=== PATIENT | female | born 1970 | race Caucasian/White ===

== ENCOUNTER → 2016-09-11 | Outpatient (CLI) | payer MEDICAID ==
[~2016-09-11] MED LIST: ATEN50TA2 PO; EFFE150C PO; HYDR12.55 PO; MOTR200T44 PO; VICO5TAB16 PO
--- NOTE | 2016-09-11 12:40 | REP ---
CHEST X-RAY: TWO VIEWS. HISTORY: Bronchitis. COMPARISON: Chest x-ray June 08, 2014. FINDINGS: The lungs are well inflated and clear. Pleural angles are sharp. Heart size is normal. There are degenerative changes in the thoracic spine. Clips are noted in the left upper quadrant of the abdomen. IMPRESSION: No active disease. No infiltrate seen.
== END ==
LOC: M CLY 09:46
PROVIDERS: ATTEND Family Medicine
DX: J40 Bronchitis, not specified as acute or chronic (principal)

== ENCOUNTER → 2016-09-21 | Outpatient (REF) | payer MEDICAID ==
[2016-09-21 19:12] LABS: ALBUMIN 3.5 GM/DL (3.2-5.2); ALKALINE PHOSPHATASE 71 U/L (45-117); ALT/SGPT 18 U/L (12-78); ANION GAP 8 MEQ/L (8-16); AST/SGOT 17 U/L (15-37); BILIRUBIN,TOTAL 0.3 MG/DL (0.2-1.0); BLOOD UREA NITROGEN 11 MG/DL (7-18); CALCIUM LEVEL 8.9 MG/DL (8.5-10.1); CARBON DIOXIDE LEVEL 29 MEQ/L (21-32); CHLORIDE LEVEL 103 MEQ/L (98-107); CHOLESTEROL LEVEL 221 MG/DL (<200); CREATININE FOR GFR 0.97 MG/DL (0.55-1.02); GLOMERULAR FILTRATION RATE > 60.0 (>58); GLUCOSE, FASTING 104 MG/DL (70-105); POTASSIUM SERUM 4.9 MEQ/L (3.5-5.1); SODIUM LEVEL 140 MEQ/L (136-145); TRIGLYCERIDES LEVEL 518 MG/DL (<150)
[2016-09-21 20:51] LABS: BASO # 0.1 K/mm3 (0.0-0.2); BASO % 0.6 % (0.0-1.0); EOS # 0.3 K/mm3 (0.0-0.50); EOS % 2.8 % (0.0-3.0); LARGE UNSTAINED CELL # 0.1 K/mm3 (0.0-0.4); LARGE UNSTAINED CELL % 1.2 % (0.0-4.0); LYMPH # 3.1 K/mm3 (1.5-4.5); LYMPH % 27.1 % (24.0-44.0); MEAN CORPUSCULAR HEMOGLOBIN 32.4 pg (27.0-33.0); MEAN CORPUSCULAR HGB CONC 33.8 g/dl (32.0-36.5); MEAN CORPUSCULAR VOLUME 95.7 fl (80.0-96.0); MONO # 0.8 K/mm3 (0.0-0.8); MONO % 6.8 % (0.0-5.0); NEUTROPHILS # 7.1 K/mm3 (1.8-7.7); NEUTROPHILS % 61.5 % (36.0-66.0); PLATELET COUNT, AUTOMATED 396 k/mm3 (150-450); RED CELL DISTRIBUTION WIDTH 12.6 % (11.5-14.5); WHITE BLOOD COUNT 11.6 K/mm3 (4.0-10.0)
== END ==
LOC: M SFHCCLAY 10:43
PROVIDERS: ATTEND Family Medicine
DX: I10 Essential (primary) hypertension (principal); E11.9 Type 2 diabetes mellitus without complications

== ENCOUNTER → 2016-11-13 | Outpatient (CLI) | payer OTHER, MEDICAID ==
--- NOTE | 2016-11-13 14:04 | REP ---
REASON: Bronchitis and dyspnea. COMPARISON: 09/11/2016 A new patchy opacity has developed in the left lower lobe. The lung mckeon are otherwise clear and unchanged. The heart is not enlarged and the pleural angles are sharp. The osseous structures are stable and intact. IMPRESSION: Acute left lower lobe pneumonia. Signed by Jim Purvis DO 11/13/2016 05:01 P
== END ==
LOC: M LRY 13:26
PROVIDERS: ATTEND Nurse Practitioner Family
DX: J18.1 Lobar pneumonia, unspecified organism (principal)

== ENCOUNTER → 2016-11-24 | Outpatient (CLI) | payer OTHER ==
--- NOTE | 2016-11-24 11:57 | REP ---
Clinical: Follow up pneumonia. Technique: PA and lateral. Comparison: 11/13/2016. Findings: Subtle left lower lobe infiltrate is again suggested. Remainder of lung mckeon are clear. No effusion or pneumothorax. Mediastinum and cardiac silhouette normal. Skeletal structures intact. Impression: Subtle left lower lobe infiltrate/atelectasis suggested.
== END ==
LOC: M CLY 11:15
PROVIDERS: ATTEND Family Medicine
DX: J15.1 Pneumonia due to Pseudomonas (principal)

== ENCOUNTER → 2017-02-03 | Outpatient (CLI) | payer OTHER ==
[~2017-02-03] MED LIST changes: +ALLE180T33 PO; +AMLO5TAB2 PO; +HYDR-3363 PO; +MOBI4TAB PO; +ZYRT10CA PO
--- NOTE | 2017-02-04 07:20 | REP ---
Clinical: Varicose veins with lower extremity pain. Technique: Bowen scale and color Doppler evaluation using linear high frequency transducer with reflux evaluation. Findings: Ultrasound examination of the right lower extremity deep venous structures from the common femoral vein to the popliteal vein demonstrates normal compressibility flow and wave patterns in response to respiration and augmentation. There is no evidence for deep venous thrombosis. Reflux involving the common femoral vein and proximal superficial femoral vein noted. Evaluation for reflux demonstrates significant reflux through the greater saphenous vein with collateral vessels in the proximal to mid saphenous distribution supplying superficial varicosities to the anterior thigh. Reflux at the saphenofemoral junction with a diameter of 5.2 mm and duration of 4.6 seconds; mid thigh with a diameter of 2.9 mm and duration of 3.7 seconds; level of the knee with the diameter of 2.5 mm and duration of 3.3 seconds. No evidence for reflux through the lesser saphenous vein. Impression: No evidence for deep venous thrombosis. Reflux involving the greater saphenous vein and associated collateral vessels to superficial varicosities as described above. Signed by Obie Wiggins MD 02/04/2017 07:12 A
== END ==
LOC: M RAD 09:35
PROVIDERS: ATTEND Surgery Vascular Surgery
DX: I83.811 Varicose veins of right lower extremity with pain (principal)

== ENCOUNTER → 2017-02-19 | Outpatient (CLI) | payer OTHER ==
[2017-02-19 14:21] LABS: MEAN CORPUSCULAR HEMOGLOBIN 31.9 pg (27.0-33.0); MEAN CORPUSCULAR VOLUME 96.9 fl (80.0-96.0); RED CELL DISTRIBUTION WIDTH 14.6 % (11.5-14.5); WHITE BLOOD COUNT 9.2 K/mm3 (4.0-10.0)
[2017-02-19 14:29] LABS: ALBUMIN 3.5 GM/DL (3.2-5.2); ALKALINE PHOSPHATASE 72 U/L (45-117); ALT/SGPT 25 U/L (12-78); ANION GAP 10 MEQ/L (8-16); AST/SGOT 16 U/L (15-37); BILIRUBIN,TOTAL 0.3 MG/DL (0.2-1.0); BLOOD UREA NITROGEN 20 MG/DL (7-18); CALCIUM LEVEL 9.2 MG/DL (8.5-10.1); CARBON DIOXIDE LEVEL 25 MEQ/L (21-32); CHLORIDE LEVEL 106 MEQ/L (98-107); CREATININE FOR GFR 0.99 MG/DL (0.55-1.02); GLOMERULAR FILTRATION RATE > 60.0 (>58); GLUCOSE, FASTING 123 MG/DL (70-105); POTASSIUM SERUM 4.4 MEQ/L (3.5-5.1); SODIUM LEVEL 141 MEQ/L (136-145)
[2017-02-27 00:06] LABS: IGE RECEPTOR ABY 1 22.5 (<10)
== END ==
LOC: M SMT 09:17
PROVIDERS: ATTEND Allergy & Immunology Allergy
DX: L50.1 Idiopathic urticaria (principal)

== ENCOUNTER → 2017-03-12 | Outpatient (REF) | payer OTHER ==
[2017-03-12 14:30] LABS: URIC ACID 6.5 MG/DL (2.6-6.0)
[2017-03-12 14:52] LABS: MEAN CORPUSCULAR HEMOGLOBIN 33.4 pg (27.0-33.0); MEAN CORPUSCULAR HGB CONC 35.4 g/dl (32.0-36.5); MEAN CORPUSCULAR VOLUME 94.6 fl (80.0-96.0); RED CELL DISTRIBUTION WIDTH 13.9 % (11.5-14.5); WHITE BLOOD COUNT 9.6 K/mm3 (4.0-10.0)
[2017-03-12 15:11] LABS: BANDS 3 % (< 11); EOSINOPHILS 3 % (0-5)
[2017-03-12 15:12] LABS: ANISOCYTOSIS 1+
[2017-03-12 16:49] LABS: ERYTHROCYTE SEDIMENTATION RATE 26 mm/hr (0-20)
[2017-03-14 00:06] LABS: Lyme Disease IgG/IgM Antibodie <0.91 ISR (0.00-0.90); Lyme Disease IgM Ab Quantitati <0.80 index (0.00-0.79)
== END ==
LOC: M LABDRAW1 10:52
PROVIDERS: ATTEND Physician Assistant Surgical
DX: M79.672 Pain in left foot (principal)

== ENCOUNTER 2017-03-18 05:59 | Day surgery (SDC) | payer OTHER ==
[~2017-03-18] VITALS: Ht 172.7 cm; Wt 79.4 kg
[~2017-03-18 05:59] MED LIST changes: -HYDR-3363 PO; -MOBI4TAB PO
[2017-03-18] MEDS ORDERED: LR 1,000 ML IV ONE (06:15)
[2017-03-18] MEDS ORDERED: MOBI4TAB PO (06:38)
[2017-03-18] MEDS ORDERED: HYDR-3363 PO (06:39)
[2017-03-18] MEDS ORDERED: LIDOCAINE W/EPINEPHRINE 1% 20ML VIAL As Ordered ONE ×2 (07:23→07:39)
[2017-03-18] MEDS ORDERED: LIDOCAINE 1% SDV INJ 30 ML VIAL As Ordered ONE (07:23)
[2017-03-18] MEDS ORDERED: fentaNYL 100 MCG/2 ML INJECTION (J3010) As Ordered ONE ×2 (07:53→08:10)
[2017-03-18] MEDS ORDERED: PROPOFOL 500 MG/50 ML VIAL As Ordered ONE (07:53)
[2017-03-18] MEDS ORDERED: MIDAZOLAM INJ 2 MG/2 ML VIAL (J2250) As Ordered ONE (07:53)
[2017-03-18] MEDS ORDERED: dexameTHASONE 4 MG/ML 1ML VIAL (J1100) As Ordered ONE (07:53)
[2017-03-18] MEDS ORDERED: ONDANSETRON 4MG/2ML VIAL (J2405) As Ordered ONE (07:53)
[2017-03-18] MEDS ORDERED: LIDOCAINE 2% INJ 100 MG/5 ML SDV (FOR ANES.) As Ordered ONE (07:55)
[2017-03-18] MEDS ORDERED: KETOROLAC 60 MG/2 ML VIAL (J1885) As Ordered ONE (08:00)
[2017-03-18] MEDS ORDERED: PROPOFOL 200 MG/20 ML VIAL As Ordered ONE (08:15)
[2017-03-18] MEDS ORDERED: FLUMAZENIL 0.5 MG/5 ML VIAL As Ordered ONE (08:18)
[2017-03-18] MEDS: PERCOCET 5MG/325MG TAB PO PRN ×3 (08:40→09:19)
[2017-03-18] MEDS ORDERED: PERCOCET 5MG/325MG TAB As Ordered ONE (08:52)
[2017-03-18] MEDS ORDERED: fentaNYL 100 MCG/2 ML INJECTION (J3010) IV PRN (09:00)
[2017-03-18] MEDS ORDERED: LR 1,000 ML IV SCH (09:00)
[2017-03-18] MEDS ORDERED: ONDANSETRON 4MG/2ML VIAL (J2405) IV PRN (09:00)
[2017-03-18 10:02] VITALS: BP 137/83
--- NOTE | 2017-03-18 21:15 | ECGEPIP ---
Stationary ECG Study [facility] Test Date: 2017-03-18 Pat Name: ORIANA STORY Department: Room: - Gender: F Garage Manager: : [id number] Requested By: Fredi Castillo Order Number: [id number] Reading MD: Adin Myers Measurements Intervals [place] Rate: 64 P: 57 MT: 185 QRS: 59 QRSD: 92 T: 43 QT: 431 QTc: 447 Interpretive Statements Normal sinus rhythm Normal EKG No significant change when compared to prior tracing of 06/06/2014 Electronically Signed On 03-18-2017 21:14:57 EDT by Adin Myers
--- NOTE | 2017-03-30 10:39 | RO ---
DATE OF PROCEDURE: 03/18/2017 PREPROCEDURE DIAGNOSES: Right lower extremity varicose veins, right lower extremity greater saphenous vein valvular insufficiency, right lower extremity pain. POSTPROCEDURE DIAGNOSES: Right lower extremity varicose veins, right lower extremity greater saphenous vein valvular insufficiency, right lower extremity pain. PROCEDURE: Right greater saphenous vein radiofrequency ablation, ultrasound guided right greater saphenous vein cannulation. SURGEON: Dr. Kip Rodriguez BROADCAST OPERATIONS ENGINEER: None. ANESTHESIA: Local MAC. ESTIMATED BLOOD LOSS: 20 IV FLUIDS: 700 mL HEPARIN: None. SPECIMENS: None. IMPLANTS: None. COMPLICATIONS: None. INDICATION: The patient is a 46-year-old female with right lower extremity pain and swelling who has throbbing at night and who has tried conservative therapy with compressive stockings, who was evaluated and found to have valvular insufficiency in the right greater saphenous vein. The patient has had little success with conservative therapy and is unable to wear her compression stockings regularly and wishes to proceed with a greater saphenous vein ablation for half-way permanent relief of symptoms. Risks, benefits and alternative treatment options were discussed with the patient. Benefits, included, but were not limited to resolution of her symptoms secondary to valvular venous insufficiency. Alternative treatment options included, but were not limited to no intervention. Risks included, but were not limited to infection, bleeding, renal failure requiring hemodialysis, possible need for open surgical intervention, scarring and burning of the skin, cerebrovascular accident, myocardial infarction, pulmonary embolism, deep vein thrombosis (DVT), loss of limb, loss of life and poor outcome. The patient's questions were answered. The patient voices understanding of these risks, benefits and alternative treatment options. The patient accepts these risks and agrees to proceed with a right greater saphenous vein radiofrequency ablation. DESCRIPTION OF PROCEDURE: The patient was taken to the operating room and placed supine on the operating room table. The right lower extremity was prepped and draped in a standard surgical fashion. A time-out was then conducted by myself and all the team members within the room confirming the correct procedure, patient, and laterality. The ultrasound was then used to identify the greater saphenous vein in the below knee region. Ultrasound was used to guide cannulation of the right greater saphenous vein in the below knee region with real time concurrent visualization of entry of the needle into the right greater saphenous vein with a hard copy image preserved. The micropuncture wire was advanced through the micropuncture needle, which was upsized to a micropuncture sheath. A J wire was advanced through the micropuncture sheath, which was upsized to a #7 Lao sheath. The radiofrequency ablation catheter was advanced through the sheath and positioned 2 cm distal to the saphenofemoral junction. solution was then injected circumferentially around the greater saphenous vein from the saphenofemoral junction to the entry site in the below knee region. The right greater saphenous vein was then ablated using the radiofrequency ablation catheter from 2 cm distal to the saphenofemoral junction to the entry site in the right below knee region. Catheter and sheath were then removed. Dressings were applied. The patient tolerated the procedure well. All instruments, sponge and needle counts were correct at the end of the case. There were no complications. Dr. Rodriguez was present for and directed the entire case. The patient was transferred to the recovery room and subsequently discharged in stable condition once dressings were applied with an Blane wrap from the base of the toes to the above knee thigh region.
== END 2017-03-18 10:10 | disposition home or self-care (01) ==
LOC: M SDC 05:59
PROVIDERS: ATTEND Surgery Vascular Surgery
DX: I83.811 Varicose veins of right lower extremity with pain (principal); I87.2 Venous insufficiency (chronic) (peripheral); I10 Essential (primary) hypertension; F17.210 Nicotine dependence, cigarettes, uncomplicated; M10.9 Gout, unspecified; R06.83 Snoring; Z79.899 Other long term (current) drug therapy; Z79.52 Long term (current) use of systemic steroids; Z91.030 Bee allergy status

== ENCOUNTER → 2017-03-26 | Outpatient (REF) | payer OTHER ==
[~2017-03-26] MED LIST changes: +HYDR-3363 PO; +MOBI4TAB PO
[2017-03-26 12:52] LABS: ALBUMIN 3.6 GM/DL (3.2-5.2); ALBUMIN/GLOBULIN RATIO 1.03 (1.00-1.93); ALKALINE PHOSPHATASE 86 U/L (45-117); ALT/SGPT 23 U/L (12-78); ANION GAP 13 MEQ/L (8-16); AST/SGOT 13 U/L (15-37); BILIRUBIN,TOTAL 0.5 MG/DL (0.2-1.0); BLOOD UREA NITROGEN 18 MG/DL (7-18); CALCIUM LEVEL 9.4 MG/DL (8.5-10.1); CARBON DIOXIDE LEVEL 22 MEQ/L (21-32); CHLORIDE LEVEL 107 MEQ/L (98-107); CHOLESTEROL LEVEL 186 MG/DL (<200); CREATININE FOR GFR 0.93 MG/DL (0.55-1.02); GLOMERULAR FILTRATION RATE > 60.0 (>58); GLUCOSE, FASTING 114 MG/DL (70-105); POTASSIUM SERUM 4.4 MEQ/L (3.5-5.1); SODIUM LEVEL 142 MEQ/L (136-145); THYROXINE (T4) 9.3 UG/DL (4.5-12.0); TOTAL PROTEIN 7.1 GM/DL (6.4-8.2); TRIGLYCERIDES LEVEL 213 MG/DL (<150)
== END ==
LOC: M SFHCCLAY 09:29
PROVIDERS: ATTEND Family Medicine
DX: E11.9 Type 2 diabetes mellitus without complications (principal); R94.6 Abnormal results of thyroid function studies

== ENCOUNTER → 2017-04-22 | Outpatient (CLI) | payer OTHER ==
--- NOTE | 2017-04-22 17:03 | REP ---
Right lower extremity duplex venous ultrasound: History: Status post endovascular laser therapy greater saphenous vein. Findings: The deep veins are anechoic and fully compressible from the groin to the popliteal fossa in the right lower extremity on two-dimensional scanning. Color flow imaging is homogeneous. Spectral Doppler interrogation demonstrates intact respiratory variation in flow normal manual augmentation of flow. There is no evidence of DVT. There is occlusive thrombosis as expected in the treated greater saphenous vein. Impression: No evidence of deep vein thrombosis. Occlusive thrombosis seen in the treated greater saphenous vein. Signed by Roosevelt Ewing MD 04/22/2017 05:14 P
== END ==
LOC: M RAD 13:13
PROVIDERS: ATTEND Surgery Vascular Surgery
DX: I83.811 Varicose veins of right lower extremity with pain (principal)

== ENCOUNTER → 2018-10-19 | Outpatient (REF) | payer OTHER ==
[~2018-10-19] MED LIST changes: -AMLO5TAB2 PO; +AMLO5TAB6 PO; -EFFE150C PO; +EFFE150C2 PO; -VICO5TAB16 PO; +VICO5TAB17 PO
[2018-10-20 12:30] LABS: THYROID STIMULATING HORMONE 3.05 uIU/ML (0.358-3.740); TOTAL T3 97.8 NG/DL (60.0-181.0)
[2018-10-21 07:45] LABS: THYROID PEROXIDASE ANTIBODY 101.8 U/ML (<60.0)
== END ==
LOC: M LABDRAWC 11:38
PROVIDERS: ATTEND Allergy & Immunology Allergy
DX: L50.8 Other urticaria (principal)

== ENCOUNTER → 2019-04-14 | Outpatient (REF) | payer OTHER | LOC: M SFHCCLAY 09:42 | PROVIDERS: ATTEND Family Medicine | DX: E11.9 Type 2 diabetes mellitus without complications (principal); R79.89 Other specified abnormal findings of blood chemistry; Z53.9 Procedure and treatment not carried out, unspecified reason ==

== ENCOUNTER → 2020-08-11 | Outpatient (CLI) | payer OTHER ==
[~2020-08-11] MED LIST changes: +AMLO1TAB24 PO; -AMLO5TAB6 PO
== END ==
LOC: M LABSMTC 09:37
PROVIDERS: ATTEND Anesthesiology
DX: Z01.812 Encounter for preprocedural laboratory examination (principal); Z20.822 Contact with and (suspected) exposure to COVID-19

== ENCOUNTER 2020-08-16 12:07 | Day surgery (SDC) | payer OTHER ==
[~2020-08-16] VITALS: Ht 172.7 cm; Wt 83.4 kg
--- OUTSIDE RECORDS SUMMARY | 2020-08-16 12:12 | CCD ---
Author Author [facility] Organization [facility] Address Unknown Phone Unavailable Care Team Providers Care Public Housing Interviewer Name Role Phone ANGELA, Bobbi ESPINO Unavailable Unavailable LETTIERE, Bobbi VALLE PA Unavailable Unavailable LETTIERE, Bobbi VALLE PA Unavailable Unavailable LETTIERE, Bobbi VALLE PA Unavailable Unavailable LETTIERE, A TORI PA Unavailable Unavailable LETTIERE, Bobbi VALLE PA Unavailable Unavailable LETTIERE, Bobbi VALLE PA Unavailable Unavailable LETTIERE, Bobbi VALLE PA Unavailable Unavailable LETTIERE, Bobbi VALLE PA Unavailable Unavailable LETTIERE, A TORI PA Unavailable Unavailable LETTIERE, A TORI PA Unavailable Unavailable LETTIERE, A TORI PA Unavailable Unavailable LETTIERE, A TORI PA Unavailable Unavailable LETTIERE, A TORI PA Unavailable Unavailable LETTIERE, A TORI PA Unavailable Unavailable LETTIERE, A TORI PA Unavailable Unavailable LETTIERE, A TORI PA Unavailable Unavailable LETTIERE, A TORI PA Unavailable Unavailable LETTIERE, A TORI PA Unavailable Unavailable LETTIERE, A TORI PA Unavailable Unavailable LETTIERE, A TORI PA Unavailable Unavailable LETTIERE, A TORI PA Unavailable Unavailable LETTIERE, A TORI PA Unavailable Unavailable LETTIERE, A TORI PA Unavailable Unavailable LETTIERE, A TORI PA Unavailable Unavailable LETTIERE, A TORI PA Unavailable Unavailable LETTIERE, A TORI PA Unavailable Unavailable LETTIERE, A TORI PA Unavailable Unavailable LETTIERE, A TORI PA Unavailable Unavailable Re-disclosure Warning The records that you are about to access may contain information from federally-assisted alcohol or drug abuse programs. If such information is present, then the following federally mandated warning applies: This information has been disclosed to you from records protected by federal confidentiality rules (42 CFR part 2). The federal rules prohibit you from making any further disclosure of this information unless further disclosure is expressly permitted by the written consent of the person to whom it pertains or as otherwise permitted by 42 CFR part 2. A general authorization for the release of medical or other information is NOT sufficient for this purpose. The Federal rules restrict any use of the information to criminally investigate or prosecute any alcohol or drug abuse patient.The records that you are about to access may contain highly sensitive health information, the redisclosure of which is protected by Article 27-F of the [facility] Public Health law. If you continue you may have access to information: Regarding HIV / AIDS; Provided by facilities licensed or operated by the [facility] Office of Mental Health; or Provided by the [facility] Office for People With Developmental Disabilities. If such information is present, then the following [facility] mandated warning applies: This information has been disclosed to you from confidential records which are protected by state law. State law prohibits you from making any further disclosure of this information without the specific written consent of the person to whom it pertains, or as otherwise permitted by law. Any unauthorized further disclosure in violation of state law may result in a fine or mcfp sentence or both. A general authorization for the release of medical or other information is NOT sufficient authorization for further disc losure. 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) Unknown [address] [facility] [address] 12/25/2019 12:00:00 AM EDT eCW1 (Count includes the [facility]) Unknown [address] [facility] [address] 12/18/2019 12:00:00 AM EDT eCW1 (Count includes the [facility]) [facility] [address] [facility] [place] [address] 11/09/2019 12:00:00 AM EDT eCW1 (Count includes the [facility]) [facility] [address] [facility] [address] 08/09/2019 12:00:00 AM EST eCW1 (Count includes the [facility]) [facility] [address] [facility] [address] 07/04/2019 12:00:00 AM EST eCW1 (Count includes the [facility]) Medications Medication Brand Name Start Date Product Form Dose Route Admi nistrative Instructions Pharmacy Instructions Status Indications Reaction Description Data Source(s) 5 mg 07/08/2020 12:00:00 AM EST tablet 30 TAKE ONE TABLET BY MOUTH EVERY DAY TAKE ONE TABLET BY MOUTH EVERY DAY SOLD: 07/16/2020 [facility] Atenolol 50 MG Oral Tablet ATENOLOL 07/08/2020 12:00:00 AM EST tablet 30 TAKE ONE TABLET BY MOUTH EVERY DAY TAKE ONE TABLET BY MOUTH EVERY DAY SOLD: 07/16/2020 [facility] montelukast 10 MG Oral Tablet MONTELUKAST SODIUM 07/07/2020 12:0 0:00 AM EST tablet 30 TAKE ONE TABLET BY MOUTH EVERY E VENING TAKE ONE TABLET BY MOUTH EVERY EVENING SOLD: 07/16/2020 [facility] montelukast 10 MG Oral Tablet MONTELUKAST SODIUM 05/16/2020 12:0 0:00 AM EST tablet 30 TAKE ONE TABLET BY MOUTH EVERY E VENING TAKE ONE TABLET BY MOUTH EVERY EVENING SOLD: 06/11/2020 [facility] 25 mg 04/21/2020 12:00:00 AM EDT tablet 120 TAKE ONE TABLET BY MOUTH EVERY 6 HOURS NEEDED TAKE ONE TABLET BY MOUTH EVERY 6 HOURS NEEDED SOLD: 06/11/2020 [facility] 25 mg 04/21/2020 12:00:00 AM EDT tablet 120 TAKE ONE TABLET BY MOUTH EVERY 6 HOURS NEEDED TAKE ONE TABLET BY MOUTH EVERY 6 HOURS NEEDED SOLD: 07/16/2020 [facility] 25 mg 04/21/2020 12:00:00 AM EDT tablet 120 TAKE ONE TABLET BY MOUTH EVERY 6 HOURS NEEDED TAKE ONE TABLET BY MOUTH EVERY 6 HOURS NEEDED SOLD: 04/21/2020 [facility] montelukast 10 MG Oral Tablet MONTELUKAST SODIUM 04/15/2020 12:0 0:00 AM EDT tablet 30 TAKE ONE TABLET BY MOUTH EVERY D AY IN THE EVENING TAKE ONE TABLET BY MOUTH EVERY DAY IN THE EVENING SOLD: 04/21/2020 [facility] montelukast 10 MG Oral Tablet MONTELUKAST SODIUM 03/11/2020 12:0 0:00 AM EDT tablet 30 TAKE ONE TABLET BY MOUTH EVERY D AY IN THE EVENING TAKE ONE TABLET BY MOUTH EVERY DAY IN THE EVENING SOLD: 03/20/2020 [facility] venlafaxine 37.5 MG Oral Tablet VENLAFAXINE HCL 02/12/2020 12:00 :00 AM EDT tablet 30 TAKE ONE TABLET BY MOUTH EVERY D AY WITH FOOD TAKE ONE TABLET BY MOUTH EVERY DAY WITH FOOD SOLD: 06/11/2020 [facility] venlafaxine 37.5 MG Oral Tablet VENLAFAXINE HCL 02/12/2020 12:00 :00 AM EDT tablet 30 TAKE ONE TABLET BY MOUTH EVERY D AY WITH FOOD TAKE ONE TABLET BY MOUTH EVERY DAY WITH FOOD SOLD: 04/21/2020 [facility] 25 mg 02/12/2020 12:00:00 AM EDT tablet 120 TAKE ONE TABLET BY MOUTH EVERY 6 HOURS NEEDED TAKE ONE TABLET BY MOUTH EVERY 6 HOURS NEEDED SOLD: 02/14/2020 [facility] venlafaxine 37.5 MG Oral Tablet VENLAFAXINE HCL 02/12/2020 12:00 :00 AM EDT tablet 30 TAKE ONE TABLET BY MOUTH EVERY D AY WITH FOOD TAKE ONE TABLET BY MOUTH EVERY DAY WITH FOOD SOLD: 03/20/2020 [facility] 25 mg 02/12/2020 12:00:00 AM EDT tablet 120 TAKE ONE TABLET BY MOUTH EVERY 6 HOURS NEEDED TAKE ONE TABLET BY MOUTH EVERY 6 HOURS NEEDED SOLD: 03/20/2020 [facility] venlafaxine 37.5 MG Oral Tablet VENLAFAXINE HCL 02/12/2020 12:00 :00 AM EDT tablet 30 TAKE ONE TABLET BY MOUTH EVERY D AY WITH FOOD TAKE ONE TABLET BY MOUTH EVERY DAY WITH FOOD SOLD: 02/14/2020 [facility] venlafaxine 37.5 MG Oral Tablet VENLAFAXINE HCL 02/12/2020 12:00 :00 AM EDT tablet 30 TAKE ONE TABLET BY MOUTH EVERY D AY WITH FOOD TAKE ONE TABLET BY MOUTH EVERY DAY WITH FOOD SOLD: 07/16/2020 [facility] PPD- TB Intradermal Test 01/30/2020 12:00:00 AM EDT [facility]) Medication administered onsite 180 mg 12/25/2019 12:00:00 AM EDT tablet 30 TAKE ONE TABLET BY MOUTH EVERY DAY NEEDED TAKE ONE TABLET BY MOUTH EVERY DAY NEEDED SOLD: 01/13/2020 [facility] 180 mg 12/25/2019 12:00:00 AM EDT tablet 30 TAKE ONE TABLET BY MOUTH EVERY DAY NEEDED TAKE ONE TABLET BY MOUTH EVERY DAY NEEDED SOLD: 03/20/2020 [facility] 180 mg 12/25/2019 12:00:00 AM EDT tablet 30 TAKE ONE TABLET BY MOUTH EVERY DAY NEEDED TAKE ONE TABLET BY MOUTH EVERY DAY NEEDED SOLD: 02/14/2020 [facility] 180 mg 12/25/2019 12:00:00 AM EDT tablet 30 TAKE ONE TABLET BY MOUTH EVERY DAY NEEDED TAKE ONE TABLET BY MOUTH EVERY DAY NEEDED SOLD: 07/16/2020 [facility] 180 mg 12/25/2019 12:00:00 AM EDT tablet 30 TAKE ONE TABLET BY MOUTH EVERY DAY NEEDED TAKE ONE TABLET BY MOUTH EVERY DAY NEEDED SOLD: 04/21/2020 [facility] 180 mg 12/25/2019 12:00:00 AM EDT tablet 30 TAKE ONE TABLET BY MOUTH EVERY DAY NEEDED TAKE ONE TABLET BY MOUTH EVERY DAY NEEDED SOLD: 06/11/2020 [facility] 90 mcg/actuation 11/12/2019 12:00:00 AM EDT HFA aerosol inha ler 18 INHALE TWO PUFFS BY MOUTH EVERY 4 HOURS NEEDED INHALE TWO PUFFS BY MOUTH EVERY 4 HOURS NEEDED SOLD: 04/21/2020 [facility] 90 mcg/actuation 11/12/2019 12:00:00 AM EDT HFA aerosol inha ler 18 INHALE TWO PUFFS BY MOUTH EVERY 4 HOURS NEEDED INHALE TWO PUFFS BY MOUTH EVERY 4 HOURS NEEDED SOLD: 11/21/2019 [facility] 90 mcg/actuation 11/12/2019 12:00:00 AM EDT HFA aerosol inha ler 18 INHALE TWO PUFFS BY MOUTH EVERY 4 HOURS NEEDED INHALE TWO PUFFS BY MOUTH EVERY 4 HOURS NEEDED SOLD: 06/11/2020 [facility] 5 mg 11/09/2019 12:00:00 AM EDT tablet 30 TAKE ONE TABLET BY MOUTH EVERY DAY TAKE ONE TABLET BY MOUTH EVERY DAY SOLD: 04/21/2020 [facility] Atenolol 50 MG Oral Tablet ATENOLOL 11/09/2019 12:00:00 AM EDT tablet 30 TAKE ONE TABLET BY MOUTH EVERY DAY TAKE ONE TABLET BY MOUTH EVERY DAY SOLD: 06/11/2020 [facility] Atenolol 50 MG Oral Tablet ATENOLOL 11/09/2019 12:00:00 AM EDT tablet 30 TAKE ONE TABLET BY MOUTH EVERY DAY TAKE ONE TABLET BY MOUTH EVERY DAY SOLD: 04/21/2020 [facility] 5 mg 11/09/2019 12:00:00 AM EDT tablet 30 TAKE ONE TABLET BY MOUTH EVERY DAY TAKE ONE TABLET BY MOUTH EVERY DAY SOLD: 06/11/2020 [facility] 5 mg 11/09/2019 12:00:00 AM EDT tablet 30 TAKE ONE TABLET BY MOUTH EVERY DAY TAKE ONE TABLET BY MOUTH EVERY DAY SOLD: 01/13/2020 [facility] 5 mg 11/09/2019 12:00:00 AM EDT tablet 30 TAKE ONE TABLET BY MOUTH EVERY DAY TAKE ONE TABLET BY MOUTH EVERY DAY SOLD: 03/20/2020 [facility] 50 mg 11/09/2019 12:00:00 AM EDT tablet 30 TAKE ONE TABLET BY MOUTH EVERY DAY TAKE ONE TABLET BY MOUTH EVERY DAY SOLD: 01/13/2020 [facility] 5 mg 11/09/2019 12:00:00 AM EDT tablet 30 TAKE ONE TABLET BY MOUTH EVERY DAY TAKE ONE TABLET BY MOUTH EVERY DAY SOLD: 11/21/2019 [facility] 5 mg 11/09/2019 12:00:00 AM EDT tablet 30 TAKE ONE TABLET BY MOUTH EVERY DAY TAKE ONE TABLET BY MOUTH EVERY DAY SOLD: 02/14/2020 [facility] 50 mg 11/09/2019 12:00:00 AM EDT tablet 30 TAKE ONE TABLET BY MOUTH EVERY DAY TAKE ONE TABLET BY MOUTH EVERY DAY SOLD: 11/21/2019 [facility] 50 mg 11/09/2019 12:00:00 AM EDT tablet 30 TAKE ONE TABLET BY MOUTH EVERY DAY TAKE ONE TABLET BY MOUTH EVERY DAY SOLD: 03/20/2020 [facility] 50 mg 11/09/2019 12:00:00 AM EDT tablet 30 TAKE ONE TABLET BY MOUTH EVERY DAY TAKE ONE TABLET BY MOUTH EVERY DAY SOLD: 02/14/2020 [facility] montelukast 10 MG Oral Tablet MONTELUKAST SODIUM 11/06/2019 12:0 0:00 AM EDT tablet 30 TAKE ONE TABLET BY MOUTH EVERY E VENING TAKE ONE TABLET BY MOUTH EVERY EVENING SOLD: 01/13/2020 [facility] venlafaxine 37.5 MG Oral Tablet VENLAFAXINE HCL 11/06/2019 12:00 :00 AM EDT tablet 30 TAKE ONE TABLET BY MOUTH EVERY D AY WITH FOOD TAKE ONE TABLET BY MOUTH EVERY DAY WITH FOOD SOLD: 01/13/2020 [facility] montelukast 10 MG Oral Tablet MONTELUKAST SODIUM 11/06/2019 12:0 0:00 AM EDT tablet 30 TAKE ONE TABLET BY MOUTH EVERY E VENING TAKE ONE TABLET BY MOUTH EVERY EVENING SOLD: 11/21/2019 [facility] venlafaxine 37.5 MG Oral Tablet VENLAFAXINE HCL 11/06/2019 12:00 :00 AM EDT tablet 30 TAKE ONE TABLET BY MOUTH EVERY D AY WITH FOOD TAKE ONE TABLET BY MOUTH EVERY DAY WITH FOOD SOLD: 11/21/2019 [facility] montelukast 10 MG Oral Tablet MONTELUKAST SODIUM 11/06/2019 12:0 0:00 AM EDT tablet 30 TAKE ONE TABLET BY MOUTH EVERY E VENING TAKE ONE TABLET BY MOUTH EVERY EVENING SOLD: 02/14/2020 [facility] 180 mg 09/06/2019 12:00:00 AM EST tablet 30 TAKE ONE TABLET BY MOUTH EVERY MORNING TAKE ONE TABLET BY MOUTH EVERY MORNING SOLD: 10/11/2019 [facility] 180 mg 09/06/2019 12:00:00 AM EST tablet 30 TAKE ONE TABLET BY MOUTH EVERY MORNING TAKE ONE TABLET BY MOUTH EVERY MORNING SOLD: 11/21/2019 [facility] 180 mg 09/06/2019 12:00:00 AM EST tablet 30 TAKE ONE TABLET BY MOUTH EVERY MORNING TAKE ONE TABLET BY MOUTH EVERY MORNING SOLD: 09/11/2019 [facility] venlafaxine 37.5 MG Oral Tablet VENLAFAXINE HCL 09/04/2019 12:00 :00 AM EST tablet 30 TAKE ONE TABLET BY MOUTH EVERY D AY WITH FOOD TAKE ONE TABLET BY MOUTH EVERY DAY WITH FOOD SOLD: 09/11/2019 [facility] venlafaxine 37.5 MG Oral Tablet VENLAFAXINE HCL 09/04/2019 12:00 :00 AM EST tablet 30 TAKE ONE TABLET BY MOUTH EVERY D AY WITH FOOD TAKE ONE TABLET BY MOUTH EVERY DAY WITH FOOD SOLD: 10/11/2019 [facility] 236-22.74-6.74 -5.86 gram 08/17/2019 12:00:00 AM EST recon s oln 4000 TAKE PER DOCTOR'S INSTRUCTIONS FOR BOWEL PREP TAKE PER DOCTOR'S INSTRUCTIONS FOR BOWEL PREP SOLD: 08/24/2019 [facility] Magnesium Hydroxide 80 MG/ML Oral Suspension Milk Of Magnesi a 08/15/2019 12:00:00 AM EST ORAL active M EDENT ([facility], ) POLYETHYLENE GLYCOL 3350 59 MG/ML / Pota ssium Chloride 0.01 MEQ/ML / Sodium Bicarbonate 0.02 MEQ/ML / Sodium Chloride 0.025 MEQ/ML / sodium sulfate 0.04 MEQ/ML Oral Solution [Golytely] Golytely 08/15/2019 12:00:00 AM EST active MEDENT ([facility], ) venlafaxine 37.5 MG Oral Tablet VENLAFAXINE HCL 07/04/2019 12:00 :00 AM EST tablet 30 TAKE ONE TABLET BY MOUTH EVERY D AY TAKE ONE TABLET BY MOUTH EVERY DAY SOLD: 07/10/2019 [facility] venlafaxine 37.5 MG Oral Tablet VENLAFAXINE HCL 07/04/2019 12:00 :00 AM EST tablet 30 TAKE ONE TABLET BY MOUTH EVERY D AY TAKE ONE TABLET BY MOUTH EVERY DAY SOLD: 08/10/2019 [facility] venlafaxine 37.5 MG Oral Tablet Venlafaxine HCl 37.5 MG Venl afaxine HCl 37.5 MG 07/04/2019 12:00:00 AM EST active 1 tablet with food eCW1 ([facility]) venlafaxine 37.5 MG Oral Tablet Venlafaxine HCl 37.5 MG Venl afaxine HCl 37.5 MG 07/04/2019 12:00:00 AM EST active 1 tablet with food eCW1 ([facility]) 180 mg 06/06/2019 12:00:00 AM EST tablet 30 TAKE ONE TABLET BY MOUTH EVERY MORNING TAKE ONE TABLET BY MOUTH EVERY MORNING SOLD: 08/10/2019 [facility] 180 mg 06/06/2019 12:00:00 AM EST tablet 30 TAKE ONE TABLET BY MOUTH EVERY MORNING TAKE ONE TABLET BY MOUTH EVERY MORNING SOLD: 07/10/2019 [facility] 25 mg 06/02/2019 12:00:00 AM EST tablet 120 TAKE ONE TABLET BY MOUTH EVERY 6 HOURS NEEDED TAKE ONE TABLET BY MOUTH EVERY 6 HOURS NEEDED SOLD: 01/13/2020 [facility] 25 mg 06/02/2019 12:00:00 AM EST tablet 120 TAKE ONE TABLET BY MOUTH EVERY 6 HOURS NEEDED TAKE ONE TABLET BY MOUTH EVERY 6 HOURS NEEDED SOLD: 09/11/2019 [facility] 25 mg 06/02/2019 12:00:00 AM EST tablet 120 TAKE ONE TABLET BY MOUTH EVERY 6 HOURS NEEDED TAKE ONE TABLET BY MOUTH EVERY 6 HOURS NEEDED SOLD: 11/21/2019 [facility] 25 mg 06/02/2019 12:00:00 AM EST tablet 120 TAKE ONE TABLET BY MOUTH EVERY 6 HOURS NEEDED TAKE ONE TABLET BY MOUTH EVERY 6 HOURS NEEDED SOLD: 10/11/2019 [facility] 25 mg 06/02/2019 12:00:00 AM EST tablet 120 TAKE ONE TABLET BY MOUTH EVERY 6 HOURS NEEDED TAKE ONE TABLET BY MOUTH EVERY 6 HOURS NEEDED SOLD: 08/10/2019 [facility] 50 mg 04/26/2019 12:00:00 AM EDT tablet 30 TAKE ONE TABLET BY MOUTH EVERY DAY TAKE ONE TABLET BY MOUTH EVERY DAY SOLD: 09/11/2019 [facility] montelukast 10 MG Oral Tablet MONTELUKAST SODIUM 04/26/2019 12:0 0:00 AM EDT tablet 30 TAKE ONE TABLET BY MOUTH EVERY D AY IN THE EVENING TAKE ONE TABLET BY MOUTH EVERY DAY IN THE EVENING SOLD: 07/10/2019 [facility] 50 mg 04/26/2019 12:00:00 AM EDT tablet 30 TAKE ONE TABLET BY MOUTH EVERY DAY TAKE ONE TABLET BY MOUTH EVERY DAY SOLD: 10/11/2019 [facility] 50 mg 04/26/2019 12:00:00 AM EDT tablet 30 TAKE ONE TABLET BY MOUTH EVERY DAY TAKE ONE TABLET BY MOUTH EVERY DAY SOLD: 08/10/2019 [facility] montelukast 10 MG Oral Tablet MONTELUKAST SODIUM 04/26/2019 12:0 0:00 AM EDT tablet 30 TAKE ONE TABLET BY MOUTH EVERY D AY IN THE EVENING TAKE ONE TABLET BY MOUTH EVERY DAY IN THE EVENING SOLD: 08/10/2019 [facility] montelukast 10 MG Oral Tablet MONTELUKAST SODIUM 04/26/2019 12:0 0:00 AM EDT tablet 30 TAKE ONE TABLET BY MOUTH EVERY D AY IN THE EVENING TAKE ONE TABLET BY MOUTH EVERY DAY IN THE EVENING SOLD: 09/11/2019 [facility] 5 mg 04/26/2019 12:00:00 AM EDT tablet 30 TAKE ONE TABLET BY MOUTH EVERY DAY TAKE ONE TABLET BY MOUTH EVERY DAY SOLD: 10/11/2019 [facility] 5 mg 04/26/2019 12:00:00 AM EDT tablet 30 TAKE ONE TABLET BY MOUTH EVERY DAY TAKE ONE TABLET BY MOUTH EVERY DAY SOLD: 09/11/2019 [facility] 5 mg 04/26/2019 12:00:00 AM EDT tablet 30 TAKE ONE TABLET BY MOUTH EVERY DAY TAKE ONE TABLET BY MOUTH EVERY DAY SOLD: 08/10/2019 [facility] montelukast 10 MG Oral Tablet MONTELUKAST SODIUM 04/26/2019 12:0 0:00 AM EDT tablet 30 TAKE ONE TABLET BY MOUTH EVERY D AY IN THE EVENING TAKE ONE TABLET BY MOUTH EVERY DAY IN THE EVENING SOLD: 10/11/2019 [facility] 5 mg 04/26/2019 12:00:00 AM EDT tablet 30 TAKE ONE TABLET BY MOUTH EVERY DAY TAKE ONE TABLET BY MOUTH EVERY DAY SOLD: 07/10/2019 [facility] 50 mg 04/26/2019 12:00:00 AM EDT tablet 30 TAKE ONE TABLET BY MOUTH EVERY DAY TAKE ONE TABLET BY MOUTH EVERY DAY SOLD: 07/10/2019 [facility] Insurance Providers Payer name Policy type / Coverage type Policy ID Covered alliance party ID Covered alliance party's relationship to mejia Policy Mejia Plan Information [place] [id number] SP [id number] 100 [facility] [id number] Preferred Provider Organization (PPO) [id number] Natanael [id number] Commercial Insur ance Co. [id number] [employer] Commercial [id number] Self [id number] [facility] Community Plan Health Maintenance Organization (HMO) [id number] Self [id number] BS [employer] Commercial [id number] Self [id number] [place] [employer] MEDICAID [id number] S [id number] Nat[employer] Commercial [id number] Self [id number] [facility] Health Maintenance Organization (HMO) [id number] Self [id number] BS [employer]FACETS Commercial [id number] Self [id number] ANSI-Medicaid [id number] ANSI-Commercial [id number] ANSI-Commercial [id number] ANS-Medicaid [id number] [place] [employer] MEDICAID [id number] S [id number] ANSI-Commercial [id number] ANSI-Medicaid [id number] ANS-Medicaid [id number] ANSI-Commercial [id number] [employer] [employer] F [id number] SELF [id number] [place] [id number] SP [id number] 100 [place] [id number] SP [id number] 100 [place] [id number] SP [id number] 100 [place] [id number] SP [id number] 100 [place] [id number] SP [id number] MEDICAID [id number] SP [id number] [place] [id number] S [id number] [employer] MEDICAID MCD HMO [id number] S [id number] [employer] MEDICAID MCD HMO [id number] MEDICAID [place] [id number] S [id number] COMMUNITY PLAN [facility] [id number] SP [id number] MEDICAID S [id number] S [id number] MEDICAID P [id number] S [id number] MEDICAID [id number] SP [id number] SELF PAY UNAVAILABLE UNAVAILA BLE HMO BLUE [id number] SP [id number] [employer] [place] WATN [id number] SP [id number] Results ID Date Data Source [id number] 08/11/2020 10:45:00 AM EST [facility] Name Value Range Interpretation Code Description Data [place] rce(s) Supporting Document(s) SARS coronavirus 2 RNA Not Detected [facility] [place] This lab was ordered by [facility] and reported by [facility]. Procedure Vital Signs ID Date Data Source UNK Name Value Range Interpretation Code Description Data Source(s) Body surface area Derived from formula 2.00 m2 2.00 m2 [facility] ([facility], ) Body weight 86.638 kg 86.638 kg [facility] ([facility]) [place] body weight 140 [lb_av] 140 [lb_av] MEDEN T ([facility]) Body mass index (BMI) [Ratio] 29.0 kg/m2 29.0 k g/m2 [facility] ([facility]) Body weight 191.00 [lb_av] 191.00 [lb_av] MEDEN T ([facility]) Body height 68 [in_i] 68 [in_i] [facility] ([facility]) 5'8" Diastolic blood pressure 70 mm[Hg] 70 mm[Hg] [facility] ([facility]) Systolic blood pressure 102 mm[Hg] 102 mm[Hg] M [facility] ([facility]) Body mass index (BMI) [Ratio] 26.9 kg/m2 26.9 k g/m2 [facility] ([facility]) Body height 68 [in_i] 68 [in_i] [facility] ([facility]) 5'8" Body weight 177.00 [lb_av] 177.00 [lb_av] MEDEN T ([facility]) Body temperature 97.8 [degF] 97.8 [degF] [facility] ([facility]) Oxygen saturation in Arterial blood by Pulse oximetry 95 % 95 % [facility] ([facility]) Respiratory rate 17 /min 17 /min [facility] ( [facility]) Heart rate 61 /min 61 /min [facility] ([facility], [facility]) Diastolic blood pressure 71 mm[Hg] 71 mm[Hg] [facility] ([facility], [facility]) Systolic blood pressure 105 mm[Hg] 105 mm[Hg] M [facility] ([facility]) Body surface area Derived from formula 1.99 m2 1.99 m2 [facility] ([facility]) Body weight 84.823 kg 84.823 kg [facility] ([facility]) [place] body weight 140 [lb_av] 140 [lb_av] MEDEN T ([facility] ) Body mass index (BMI) [Ratio] 28.4 kg/m2 28.4 k g/m2 [facility] ([facility]) Body weight 187.00 [lb_av] 187.00 [lb_av] [facility] Body height 68 [in_i] 68 [in_i] [facility] ([facility]) 5'8" Diastolic blood pressure 78 mm[Hg] 78 mm[Hg] [facility] Systolic blood pressure 122 mm[Hg] 122 mm[Hg] M [facility] ([facility]) Patient Treatment Plan of Care Planned Activity Planned Date Details Description Data Source (s) venlafaxine 37.5 MG Oral Tablet 07/04/2019 12:00:00 AM EST eCW1 ([facility]) venlafaxine 37.5 MG Oral Tablet 07/04/2019 12:00:00 AM EST [facility]CW1 [facility] Point)
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
--- OUTSIDE RECORDS SUMMARY | 2020-08-16 12:12 | CCD | Continuity of Care Document ---
Author Author [facility] Organization Unknown Address [address] [place] [address] Phone [phone] Care Team Providers Care Beef Trimmer Name Role Phone Philipp Bowman D.O. 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 4000ml Z12.11 Lan lange MD 08/15/2019 Milk Of Magnesia 1200mg/15ML Suspe nsion take 45 milliliters by mouth as directed on colonoscopy prep sheet. Z12.11 Lan Johnston MD 08/15/2019 Epipen 2-Andreas 0.3mg/0.3ML Soaj Unknown Atenolol 50mg Tablets 1 po qd Unknown Amlodipine Besylate 5mg Tablets 1 by mouth every day Unknown Hydroxyzine HCL 25mg Tablets qid Unknown Venlafaxine HCL 37.5mg Tablets 1 by mouth every day Unknown Fexofenadine HCL 180mg Tablets every day Unknown Montelukast Sodium 10mg Tablets 1 by mouth every day Unknown Xyzal Allergy 24HR 5mg Tablets one by mouth every day Unknown Albuterol Sulfate Powder 2 p uffs prn Unknown Immunizations Description No Information Available Vital Signs Date Vital Result Comment 07/24/2020 12:59pm BP Systolic 102 mmHg BP Diastolic 70 mmHg Height 68 inches 5'8" Weight 191.00 lb BMI (Body Mass Index) 29.0 kg/m2 [place] Body Weight 140 lb Weight 86.638 kg BSA (Body Surface Area) 2.00 m2 08/15/2019 2:18pm BP Systolic 122 mmHg BP Diastolic 78 mmHg Height 68 inches 5'8" Weight 187.00 lb BMI (Body Mass Index) 28.4 kg/m2 [place] Body Weight 140 lb Weight 84.823 kg BSA (Body Surface Area) 1.99 m2 Results Description No Information Available Procedures Description No Information Available Medical Devices Description No Information Available Encounters Description No Information Available Assessments Date Code Description Provider 07/24/2020 Z12.11 Encounter for screening for tesfaye gnant neoplasm of colon ANSELMO Campa Plan of Treatment Future Appointment(s):* 08/16/2020 3:00 am - Lan Johnston MD at [facility] 07/24/2020 - ANSELMO Campa* Z12.11 Encounter for screening for malignant neoplasm of colon * * Comments:* Will arrange for colonoscopy. Reviewed risks and benefits of the procedure, as well as other options, with the patient. Bowel prep procedure was discussed with patient, as well as risks and side effects associated with the bowel prep. Patient verbalized understanding of all of the above and is in agreement to proceed. Patient will seek medical attention for any acute changes. Will monitor. * Follow up:* As scheduled, sooner if needed. Functional Status Description No Information Available Mental Status Description No Information Available Referrals Description No Information Available
--- OUTSIDE RECORDS SUMMARY | 2020-08-16 12:12 | CCD ---
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 Active 819876412 Problem Unspecified esophagitis 530.10 Active 42659117 Problem Essential (primary) hypertension I10 Active 63115963 Problem Smoker F17.200 Active 96564308 Problem Mixed hyperlipidemia E78.2 Active 010800609 Problem Other hyperlipidemia E78.4 Active 80667966 Problem Type 2 diabetes mellitus without complications E11 .9 Active 190206154 Problem History of splenectomy Z90.81 Active 039430624 Problem Anxiety F41.9 Active 73339615 ALLERGIES Allergen (clinical drug ingredient) Drug/Non Drug Allergy do cumented on EMR Reaction Allergy Type Onset Date Status Wellbutrin disorientation Drug Allergy Active Bees Swelling Non Drug Allergy Active ENCOUNTERS from 1970 to 2020-07-08 Encounter Location Date Provider Diagnosis [address] [address] Jun Philipp Colby IMMUNIZATIONS Vaccine Route Administration Date Status TDAP [...] directed Intramuscular prn bee sting November, Active HydrOXYzine HCl 25 mg 1 tablet as needed Orally every 6 hrs for 30 Da ys Active Atenolol 50 mg 1 tablet Orally Once a day for 90 Active Venlafaxine HCl 37.5 MG TAKE ONE TABLET BY MOUTH EVERY DAY WITH ANA MARIA D for 30 Active Montelukast Sodium 10 MG 1 tablet in the evening Orally Once a day Active Ventolin HFA 108 (90 Base) MCG/ACT INHALE TWO PUFFS BY MOUTH EVERY 4 HOURS NEEDED for 17 Active Amlodipine Besylate 5 MG 1 tablet Orally Once a day for 90 day(s) Active Mariela Allergy 180 MG 1 tablet as needed Orally Once a day for 90 da y(s) Active PROCEDURES No Information RESULTS No Results REASON FOR VISIT refills MEDICAL (GENERAL) HISTORY Type Description Date Medical [...] Medication Name Sig Start Date Stop Date Amlodipine Besylate 5 MG 1 tablet Orally Once a day for 90 day(s ) Ventolin HFA 108 (90 Base) MCG/ACT INHALE TWO PUFFS BY MOUTH EVERY 4 HOURS NEEDED for 17 HydrOXYzine HCl 25 mg 1 tablet as needed Orally every 6 hrs for 30 Days Atenolol 50 mg 1 tablet Orally Once a day for 90 Venlafaxine HCl 37.5 MG TAKE ONE TABLET BY MOUTH EVERY DAY WITH FOOD for 30 Mariela Allergy 180 MG 1 tablet as needed Orally Once a day for 90 day(s) Insurance Providers Payer Name Payer Address Payer Phone Insured Name Patient Relati onship to Insured Coverage Start Date Coverage End Date [facility] CORPORATE CLAIMS [address]PT [address] [facility] [phone] [place] self
[2020-08-16] MEDS ORDERED: propofoL 200 MG/20 ML VIAL As Ordered ONE ×2 (12:25→14:34)
[2020-08-16] MEDS ORDERED: LIDOCAINE 2% 100MG/5ML SDV (FOR ANES.) As Ordered ONE (12:25)
--- NOTE | 2020-08-16 14:50 | ROOR ---
Patient Name: Elinor Poon Procedure Date: 08/16/2020 2:14 PM Date of : 1970 Age: 50 Room: [facility] Gender: Female Note Status: Finalized Procedure: Colonoscopy Indications: Screening for colorectal malignant neoplasm Providers: Lan JOHNSTON MD Referring MD: FAVIOLA BAUER DO Requesting Provider: Medicines: Monitored Anesthesia Care Complications: No immediate complications. Procedure: Pre-Anesthesia Assessment: - The heart rate, respiratory rate, oxygen saturations, blood pressure, adequacy of pulmonary ventilation, and response to care were monitored throughout the procedure. The Colonoscope was introduced through the anus and advanced to the terminal ileum, with identification of the appendiceal orifice and IC valve. The colonoscopy was performed without difficulty. The patient tolerated the procedure well. The quality of the bowel preparation was good. Findings: The perianal and digital rectal examinations were normal. A 5 mm polyp was found in the sigmoid colon. The polyp was sessile. The polyp was removed with a cold snare. Resection and retrieval were complete. The exam was otherwise without abnormality on direct and retroflexion views. Impression: - One 5 mm polyp in the sigmoid colon, removed with a cold snare. Resected and retrieved. - The examination was otherwise normal on direct and retroflexion views. Recommendation: - Repeat colonoscopy in 5 years for surveillance. Procedure Code(s): --- Professional --- 01092, Colonoscopy, flexible; with removal of tumor(s), polyp(s), or other lesion(s) by snare technique Diagnosis Code(s): --- Professional --- K63.5, Polyp of colon Z12.11, Encounter for screening for malignant neoplasm of colon CPT copyright 2019 [employer]. All rights reserved. The codes documented in this report are preliminary and upon field health officer review may be revised to meet current compliance requirements. Lan Johnston MD Lan JOHNSTON MD 08/16/2020 2:49:28 PM Electronically signed by Lan JOHNSTON MD Number of Addenda: 0 Note Initiated On: 08/16/2020 2:14 PM Estimated Blood Loss: Estimated blood loss: none.
[2020-08-16 15:05] VITALS: BP 144/84
== END 2020-08-16 15:15 | disposition home or self-care (01) ==
LOC: M OPP 12:07
PROVIDERS: ATTEND Internal Medicine Gastroenterology
DX: Z12.11 Encounter for screening for malignant neoplasm of colon (principal); K63.5 Polyp of colon; I10 Essential (primary) hypertension; M19.90 Unspecified osteoarthritis, unspecified site; F17.210 Nicotine dependence, cigarettes, uncomplicated; M10.9 Gout, unspecified; Z91.030 Bee allergy status; Z82.49 Family history of ischemic heart disease and other diseases of the circulatory system; Z83.71 Family history of colonic polyps

== ENCOUNTER → 2020-08-30 | Outpatient (REF) | payer OTHER ==
[2020-08-30 11:42] LABS: BASO % 0.1 % (0.0-1.0); EOS # 0.5 10^3/uL (0.0-0.5); EOS % 4.6 % (0.0-3.0); HEMATOCRIT 44.9 % (36.0-47.0); LYMPH # 4.1 10^3/uL (1.5-5.0); LYMPH % 39.5 % (24.0-44.0); MEAN CORPUSCULAR HEMOGLOBIN 30.9 pg (27.0-33.0); MEAN CORPUSCULAR HGB CONC 33.4 g/dl (32.0-36.5); MEAN CORPUSCULAR VOLUME 92.6 fl (80.0-96.0); MONO # 0.8 10^3/uL (0.0-0.8); MONO % 8.2 % (2.0-8.0); NEUTROPHILS # 4.9 10^3/uL (1.5-8.5); NEUTROPHILS % 47.3 % (36.0-66.0); PLATELET COUNT, AUTOMATED 376 10^3/uL (150-450); RED BLOOD COUNT 4.85 10^6/uL (4.00-5.40); WHITE BLOOD COUNT 10.3 10^3/uL (4.0-10.0)
[2020-08-30 11:57] LABS: HEMOGLOBIN A1c 6.1 %
[2020-08-30 12:17] LABS: ALBUMIN 3.6 GM/DL (3.2-5.2); BILIRUBIN,TOTAL 0.1 MG/DL (0.2-1.0); CALCIUM LEVEL 9.1 MG/DL (8.5-10.1); CHOLESTEROL RISK RATIO 5.656 (<5); CREATININE FOR GFR 1.3 MG/DL (0.55-1.30); GLOMERULAR FILTRATION RATE 45.8 (>51); POTASSIUM SERUM 5.2 MEQ/L (3.5-5.1); THYROID STIMULATING HORMONE 7.93 uIU/ML (0.358-3.740); THYROXINE (T4) 9.2 UG/DL (4.5-12.0); TOTAL PROTEIN 7.2 GM/DL (6.4-8.2)
== END ==
LOC: M SFHCCLAY 07:42
PROVIDERS: ATTEND Family Medicine
DX: I10 Essential (primary) hypertension (principal); E11.9 Type 2 diabetes mellitus without complications; E78.2 Mixed hyperlipidemia; R79.89 Other specified abnormal findings of blood chemistry

== ENCOUNTER → 2020-08-30 | Outpatient (CLI) | payer OTHER ==
--- NOTE | 2020-08-30 08:52 | REP ---
INDICATION: M25.561 PAIN IN RIGHT AND LEFT KNEE COMPARISON: None. TECHNIQUE: AP, lateral, bilateral oblique and sunrise views. FINDINGS: Relatively symmetric early moderate tricompartmental osteoarthritic degenerative changes are appreciated including subchondral sclerosis along the tibial plateau and posterior patella with early osteophyte formation primarily noted in the medial compartments and along the patella with mild medial joint space narrowing. [place] views demonstrate increased sclerosis and subtle fraying along the anterior patellar margins. There is no evidence for acute or healed fracture. No obvious effusion. IMPRESSION: Relatively symmetric early moderate tricompartmental osteoarthritic degenerative changes. <Electronically signed by Obie Wiggins > 08/30/20 0847
--- NOTE | 2020-08-30 08:54 | REP ---
INDICATION: M25.561 PAIN IN RIGHT AND LEFT KNEE COMPARISON: None. TECHNIQUE: AP weightbearing view of the right and left knee. FINDINGS: In comparison with nonweightbearing views of the knees, there is again mild bilateral medial joint space narrowing with associated early moderate arthritic changes. Weightbearing view also suggests mild left lateral compartment narrowing. IMPRESSION: Mild bilateral medial joint space narrowing and left lateral joint space narrowing. <Electronically signed by Obie Wiggins > 08/30/20 1695
== END ==
LOC: M CLY 08:02
PROVIDERS: ATTEND Family Medicine
DX: M17.0 Bilateral primary osteoarthritis of knee (principal); M85.861 Other specified disorders of bone density and structure, right lower leg; M85.862 Other specified disorders of bone density and structure, left lower leg

== ENCOUNTER → 2021-02-21 | Outpatient (REF) | payer OTHER ==
[2021-02-21 12:37] LABS: ALBUMIN 3.4 GM/DL (3.2-5.2); BILIRUBIN,TOTAL 0.5 MG/DL (0.2-1.0); CALCIUM LEVEL 8.8 MG/DL (8.5-10.1); CREATININE FOR GFR 1.06 MG/DL (0.55-1.30); FREE T4 0.87 NG/DL (0.76-1.46); POTASSIUM SERUM 4.5 MEQ/L (3.5-5.1); THYROID STIMULATING HORMONE 2.28 uIU/ML (0.358-3.740); TOTAL PROTEIN 6.9 GM/DL (6.4-8.2)
== END ==
LOC: M SFHCCLAY 09:20
PROVIDERS: ATTEND Family Medicine
DX: R79.89 Other specified abnormal findings of blood chemistry (principal); I10 Essential (primary) hypertension

== ENCOUNTER 2021-09-27 17:02 | Emergency (ER) | payer OTHER ==
[~2021-09-27] VITALS: Ht 165.1 cm; Wt 92.3 kg
[2021-09-27] MEDS ORDERED: NALOXONE 2MG/2ML SYRINGE (J2310 PER 1MG) IV ONE (17:15)
[2021-09-27] MEDS ORDERED: NALOXONE 2MG/2ML SYRINGE (J2310 PER 1MG) As Ordered ONE (17:17)
[2021-09-27 17:43] LABS: BASO % 0.1 % (0.0-1.0); EOS # 0.2 10^3/uL (0.0-0.5); EOS % 1.4 % (0.0-3.0); HEMATOCRIT 44.2 % (36.0-47.0); HEMOGLOBIN 14.3 g/dl (12.0-15.5); LYMPH # 1.9 10^3/uL (1.5-5.0); LYMPH % 12.8 % (24.0-44.0); MEAN CORPUSCULAR HEMOGLOBIN 31.5 pg (27.0-33.0); MEAN CORPUSCULAR HGB CONC 32.4 g/dl (32.0-36.5); MEAN CORPUSCULAR VOLUME 97.4 fl (80.0-96.0); MONO # 1.2 10^3/uL (0.0-0.8); MONO % 8.1 % (2.0-8.0); NEUTROPHILS # 11.6 10^3/uL (1.5-8.5); NEUTROPHILS % 77.3 % (36.0-66.0); PLATELET COUNT, AUTOMATED 275 10^3/uL (150-450); RED BLOOD COUNT 4.54 10^6/uL (4.00-5.40)
[2021-09-27 18:16] LABS: ACETAMINOPHEN LEVEL < 2.0 UG/ML (10.0-30.0); ALBUMIN 3.5 GM/DL (3.2-5.2); ALT/SGPT 27 U/L (12-78); BILIRUBIN,DIRECT < 0.1 MG/DL (0.0-0.2); BILIRUBIN,TOTAL 0.1 MG/DL (0.2-1.0); BLOOD UREA NITROGEN 15 MG/DL (7-18); CALCIUM LEVEL 9.4 MG/DL (8.5-10.1); CARBON DIOXIDE LEVEL 31 MEQ/L (21-32); CHLORIDE LEVEL 104 MEQ/L (98-107); CREATININE FOR GFR 1.28 MG/DL (0.55-1.30); ETHYL ALCOHOL (ETHANOL) < 0.003 % (0.000-0.010); GLOMERULAR FILTRATION RATE 46.4 (>51); GLUCOSE, FASTING 163 MG/DL (70-100); POTASSIUM SERUM 4.3 MEQ/L (3.5-5.1); SALICYLATE LEVEL < 1.7 MG/DL (5.0-30.0); SODIUM LEVEL 141 MEQ/L (136-145); TOTAL PROTEIN 6.8 GM/DL (6.4-8.2)
[2021-09-27] MEDS ORDERED: LORA1TAB4 PO (20:07)
[2021-09-27] MEDS ORDERED: VENL-37 PO (20:07)
[2021-09-27] MEDS ORDERED: MONT10TA97 PO (20:07)
[2021-09-27] MEDS ORDERED: CELE1CAP9 PO (20:07)
[2021-09-27] MEDS ORDERED: VENL37TA PO (20:07)
[2021-09-27 20:33] LABS: AMPHETAMINES LEVEL URINE NEGATIVE (NEGATIVE); BARBITURATES URINE NEGATIVE (NEGATIVE); BENZODIAZEPINES URINE NEGATIVE (NEGATIVE); CANNABINOIDS URINE NEGATIVE (NEGATIVE); COCAINE METABOLITE URINE NEGATIVE (NEGATIVE); METHADONE URINE NEGATIVE (NEGATIVE); OPIATES URINE POSITIVE (NEGATIVE); PHENCYCLIDINE URINE NEGATIVE (NEGATIVE)
[2021-09-27 20:52] VITALS: BP 129/80
== END 2021-09-27 21:27 | disposition home or self-care (01) ==
LOC: EDBD 17:02 → M ED 17:02
DX: T40.0X1A Poisoning by opium, accidental (unintentional), initial encounter (principal); I10 Essential (primary) hypertension; M10.9 Gout, unspecified; F17.200 Nicotine dependence, unspecified, uncomplicated; Z79.899 Other long term (current) drug therapy; Z91.030 Bee allergy status
CPT/HCPCS: 36415; 70450; 71045; 80048; 80076; 80143; 80307; 82077; 82550; 84443; 85025; 93005; 93041; 94760; 96374; 99285; J2310

== ENCOUNTER → 2022-11-16 | Outpatient (REF) | payer OTHER ==
[~2022-11-16] MED LIST changes: +CELE1CAP9 PO; +LORA1TAB23 PO; +MONT10TA97 PO; +VENL-37 PO; +VENL37TA PO
[2022-11-16 18:31] LABS: HEMATOCRIT 46.8 % (36.0-47.0); HEMOGLOBIN 15.2 g/dl (12.0-15.5); MEAN CORPUSCULAR HEMOGLOBIN 30.4 pg (27.0-33.0); MEAN CORPUSCULAR HGB CONC 32.5 g/dl (32.0-36.5); MEAN CORPUSCULAR VOLUME 93.6 fl (80.0-96.0); PLATELET COUNT, AUTOMATED 379 10^3/uL (150-450); WHITE BLOOD COUNT 17.5 10^3/uL (4.0-10.0)
[2022-11-16 19:06] LABS: ALBUMIN 3.3 G/DL (3.2-5.2); ALKALINE PHOSPHATASE 102 U/L (46-116); ALT/SGPT < 9 U/L (7.0-40); AST/SGOT 13 U/L (<34); BILIRUBIN,TOTAL 0.2 MG/DL (0.3-1.2); BLOOD UREA NITROGEN 16 MG/DL (9-23); CALCIUM LEVEL 9.4 MG/DL (8.5-10.1); CARBON DIOXIDE LEVEL 26 MMOL/L (20-31); CHLORIDE LEVEL 99 MMOL/L (98-107); CREATININE FOR GFR 1.66 MG/DL (0.55-1.30); GLOMERULAR FILTRATION RATE 34.3 (>51); GLUCOSE, FASTING 74 MG/DL (60-100); HCG, SERUM QUALITATIVE NEGATIVE (NEGATIVE); POTASSIUM SERUM 5.5 MMOL/L (3.5-5.1); SODIUM LEVEL 136 MMOL/L (136-145); TOTAL PROTEIN 7.1 G/DL (5.7-8.2)
[2022-11-16 19:20] LABS: HEPATITIS B SURFACE ANTIGEN NEGATIVE (NEGATIVE)
[2022-11-16 19:33] LABS: HIV 1&2 SCREEN CENTAUR NEGATIVE (NEGATIVE)
== END ==
LOC: M LABDRAWC 16:57
PROVIDERS: ATTEND Family Medicine
DX: F11.20 Opioid dependence, uncomplicated (principal)

== ENCOUNTER → 2022-12-24 | Outpatient (REF) | payer OTHER ==
[2022-12-24 17:39] LABS: ALBUMIN 3.4 G/DL (3.2-5.2); BILIRUBIN,TOTAL 0.3 MG/DL (0.3-1.2); CALCIUM LEVEL 8.6 MG/DL (8.5-10.1); CHOLESTEROL RISK RATIO 4.16 (<5); CREATININE FOR GFR 1.16 MG/DL (0.55-1.30); GLOMERULAR FILTRATION RATE 51.8 (>51); HDL CHOLESTEROL 34.8 MG/DL (>40); NON-HDL-C 110.2 MG/DL; POTASSIUM SERUM 4.8 MMOL/L (3.5-5.1); TOTAL PROTEIN 6.4 G/DL (5.7-8.2)
[2022-12-24 17:40] LABS: THYROID STIMULATING HORMONE 4.239 uIU/ML (0.55-4.78)
[2022-12-24 17:52] LABS: BASO # 0.1 10^3/uL (0.0-0.2); BASO % 0.4 % (0.0-1.0); EOS # 0.4 10^3/uL (0.0-0.5); EOS % 3.5 % (0.0-3.0); HEMATOCRIT 42.6 % (36.0-47.0); HEMOGLOBIN 13.8 g/dl (12.0-15.5); LYMPH % 31.3 % (24.0-44.0); MEAN CORPUSCULAR HEMOGLOBIN 30.7 pg (27.0-33.0); MEAN CORPUSCULAR HGB CONC 32.4 g/dl (32.0-36.5); MEAN CORPUSCULAR VOLUME 94.7 fl (80.0-96.0); MONO # 1.1 10^3/uL (0.0-0.8); MONO % 8.4 % (2.0-8.0); NEUTROPHILS # 7.1 10^3/uL (1.5-8.5); NEUTROPHILS % 55.9 % (36.0-66.0); PLATELET COUNT, AUTOMATED 360 10^3/uL (150-450); WHITE BLOOD COUNT 12.7 10^3/uL (4.0-10.0)
[2022-12-24 18:32] LABS: HEMOGLOBIN A1c 6.6 % (4.0-6.0)
== END ==
LOC: M SFHCCLAY 10:49
PROVIDERS: ATTEND Physician Assistant
DX: I10 Essential (primary) hypertension (principal); E78.2 Mixed hyperlipidemia; R79.89 Other specified abnormal findings of blood chemistry; E11.9 Type 2 diabetes mellitus without complications

== ENCOUNTER → 2022-12-24 | Outpatient (REF) | payer OTHER ==
[2022-12-24 19:36] LABS: GC DNA AMPLIFICATION NEGATIVE (NEGATIVE)
== END ==
LOC: M LABDRAWC 16:55
PROVIDERS: ATTEND Family Medicine
DX: F11.20 Opioid dependence, uncomplicated (principal)

== ENCOUNTER → 2023-05-06 | Outpatient (REF) | payer OTHER ==
[~2023-05-06] MED LIST changes: +CELE0.09 PO; -CELE1CAP9 PO
[2023-05-06 19:03] LABS: BASO % 0.1 % (0.0-1.0); EOS # 0.4 10^3/uL (0.0-0.5); EOS % 2.8 % (0.0-3.0); HEMATOCRIT 44.7 % (36.0-47.0); HEMOGLOBIN 14.4 g/dl (12.0-15.5); LYMPH # 3.7 10^3/uL (1.5-5.0); LYMPH % 25.8 % (24.0-44.0); MEAN CORPUSCULAR HGB CONC 32.2 g/dl (32.0-36.5); MEAN CORPUSCULAR VOLUME 96.1 fl (80.0-96.0); MONO % 7.2 % (2.0-8.0); NEUTROPHILS # 9.2 10^3/uL (1.5-8.5); NEUTROPHILS % 63.8 % (36.0-66.0); PLATELET COUNT, AUTOMATED 416 10^3/uL (150-450); RED BLOOD COUNT 4.65 10^6/uL (4.00-5.40); WHITE BLOOD COUNT 14.4 10^3/uL (4.0-10.0)
[2023-05-06 19:10] LABS: HEMOGLOBIN A1c 5.9 % (4.0-6.0)
[2023-05-06 19:14] LABS: ALBUMIN 3.2 G/DL (3.2-5.2); BILIRUBIN,TOTAL 0.5 MG/DL (0.3-1.2); CALCIUM LEVEL 9.3 MG/DL (8.5-10.1); CREATININE FOR GFR 1.07 MG/DL (0.55-1.30); GLOMERULAR FILTRATION RATE 56.9 (>51); MAGNESIUM LEVEL 1.8 MG/DL (1.8-2.4); POTASSIUM SERUM 5.3 MMOL/L (3.5-5.1); TOTAL PROTEIN 6.7 G/DL (5.7-8.2)
[2023-05-06 19:15] LABS: FREE T4 0.98 NG/DL (0.89-1.76); THYROID STIMULATING HORMONE 2.466 uIU/ML (0.55-4.78)
== END ==
LOC: M SFHCCLAY 10:20
PROVIDERS: ATTEND Family Medicine
DX: I10 Essential (primary) hypertension (principal); E11.9 Type 2 diabetes mellitus without complications; R79.89 Other specified abnormal findings of blood chemistry

== ENCOUNTER → 2024-04-12 | Outpatient (REF) | payer OTHER ==
[~2024-04-12] MED LIST changes: -EFFE150C2 PO; +EFFE150C3 PO
[2024-04-12 12:20] LABS: HEMOGLOBIN A1c 5.9 % (4.0-6.0)
[2024-04-12 12:38] LABS: CHOLESTEROL RISK RATIO 3.78 (<5); HDL CHOLESTEROL 45.2 MG/DL (>40); NON-HDL-C 125.8 MG/DL
[2024-04-12 12:39] LABS: FREE T4 1.05 NG/DL (0.89-1.76); THYROID STIMULATING HORMONE 0.704 uIU/ML (0.55-4.78)
[2024-04-12 12:42] LABS: TOTAL T3 96.6 NG/DL (60.0-181.0)
== END ==
LOC: M SFHCCLAY 08:14
PROVIDERS: ATTEND Family Medicine
DX: E11.9 Type 2 diabetes mellitus without complications (principal); R79.89 Other specified abnormal findings of blood chemistry; E78.2 Mixed hyperlipidemia

== ENCOUNTER → 2025-03-13 | Outpatient (REF) | payer OTHER ==
[2025-03-13 18:13] LABS: ALT/SGPT 134.0 U/L (7.0-40); AST/SGOT 104.0 U/L (<34); CALCIUM LEVEL 8.9 MG/DL (8.5-10.1); CARBON DIOXIDE LEVEL 25.0 MMOL/L (20-31); CHLORIDE LEVEL 106.0 MMOL/L (98-107); CHOLESTEROL LEVEL 101.0 MG/DL (<200); CHOLESTEROL RISK RATIO 2.89 (<5); CREATININE FOR GFR 1.52 MG/DL (0.55-1.30); GLOMERULAR FILTRATION RATE 40.0 (>51); LDL CHOLESTEROL 5.7 MG/DL (<100); MAGNESIUM LEVEL 1.9 MG/DL (1.8-2.4); NON-HDL-C 66.1 MG/DL; POTASSIUM SERUM 5.1 MMOL/L (3.5-5.1); SODIUM LEVEL 139.0 MMOL/L (136-145); TRIGLYCERIDES LEVEL 302.0 MG/DL (<150)
[2025-03-13 18:14] LABS: FREE T4 1.5 NG/DL (0.89-1.76)
[2025-03-13 18:15] LABS: PLATELET COUNT, AUTOMATED 246 10^3/uL (150-450)
[2025-03-13 18:28] LABS: ESTIMATED AVERAGE GLUCOSE 131.0 MG/DL (60-110)
== END ==
LOC: M SFHCCLAY 10:06
PROVIDERS: ATTEND Family Medicine
DX: I10 Essential (primary) hypertension (principal); E11.9 Type 2 diabetes mellitus without complications; E78.2 Mixed hyperlipidemia; R79.89 Other specified abnormal findings of blood chemistry

== ENCOUNTER → 2025-06-12 | Outpatient (REF) | payer OTHER ==
[2025-06-12 18:38] LABS: ALT/SGPT 10 U/L (7.0-40); AST/SGOT 17 U/L (<34); CALCIUM LEVEL 9.3 MG/DL (8.5-10.1); CARBON DIOXIDE LEVEL 28 MMOL/L (20-31); CHLORIDE LEVEL 105 MMOL/L (98-107); CREATININE FOR GFR 1.12 MG/DL (0.55-1.30); GLOMERULAR FILTRATION RATE 57.4 (>51); POTASSIUM SERUM 4.1 MMOL/L (3.5-5.1); SODIUM LEVEL 141 MMOL/L (136-145)
[2025-06-12 19:11] LABS: HEPATITIS C VIRUS ABY INDEX 0.02 INDEX (<0.8)
== END ==
LOC: M SFHCCLAY 10:08
PROVIDERS: ATTEND Family Medicine
DX: R74.8 Abnormal levels of other serum enzymes (principal)